=== PATIENT | female | born 1965 | race Two or more races ===

== ENCOUNTER → 2024-12-25 | Outpatient (CLI) | payer MEDICAID, SELFPAY ==
--- NOTE | 2024-12-25 12:00 | XR_ITS ---
MRI shoulder, right, without contrast. Date and time: December 25, 2024, 1442 hours INDICATIONS: Shoulder pain radiating to the neck 2 years numbness in the arm Technique: Multiple axial, sagittal and coronal sections of the shoulder have been obtained. Siemens high-resolution 1.5 Viri MRI scanner is utilized. Axial fat-suppressed sections, TR 2350, TE 18 T2-weighted coronal fat-saturated images, TR 3500, TE 7100 T1-weighted coronal images, TR 500, TE 15 T2-weighted sagittal fat-saturated images, TR 3500, TE 57 T1-weighted sagittal sections, TR 504, TE 13. Findings: Supraspinatus tendon insertion is abnormal, 4 mm rim rent articular surface partial thickness tear. Infraspinatus tendon insertion is intact. Subscapularis insertion is intact. Subscapularis bursa is not see. Long head of the biceps is in the bicipital groove. No definite tear of the biceps superior labral anchor is seen. Retraction of the musculotendinous junction of the rotator cuff is not seen . Tendinosis pattern is moderate. Distance between the acromium and humeral head is 5.6 mm Atrophy of the supraspinatus muscle is moderate. Atrophy of the infraspinatus muscle is mild. Sagittal sections demonstrate a horizontal acromion. Acromioclavicular joint demonstrates moderate osteoarthritis. Osacromiale is not identified. Labral margins intact. Bony glenoid fossa on the sagittal sections does not demonstrate osseous defect. Occult fracture or area of avascular necrosis is not seen. Acromioclavicular joint separation is not visible. Defect in the posterolateral margin of the humeral head is not seen Impression: 4 mm rim rent articular surface partial thickness tear supraspinatus
== END | disposition home or self-care (01) ==
PROVIDERS: Referring Provider Orthopaedic Surgery; Visit Provider Orthopaedic Surgery
DX: M75.101 Unspecified rotator cuff tear or rupture of right shoulder, not specified as traumatic (principal)
CPT/HCPCS: 73221

== ENCOUNTER 2025-01-24 08:50 | Day surgery (SDC) | payer MEDICAID, SELFPAY ==
[2025-01-23 11:41] VITALS: BMI 30.2
--- NOTE | 2025-01-23 11:51 | EKG_ITS ---
[facility] Test Date: 2025-01-23 Pat Name: LONA KHAN Department: Room: - Gender: Female Bass Fisher: TATI : 1965 Requested By: Sascha Nathan Order Number: [id number] Reading MD: Sascha Nathan Measurements Intervals [place] Rate: 54 P: 38 ND: 143 QRS: -2 QRSD: 97 T: 13 QT: 417 QTc: 396 Interpretive Statements SINUS BRADYCARDIA No previous ECG available for comparison /store/S0/[id number].pdf
[2025-01-23 12:20] LABS: Basophils # (Auto) 0.0 Thou/mm3 (0.0-0.2); Basophils % (Auto) 1 % (0-2.5); Eosinophils # (Auto) 0.2 Thou/mm3 (0.0-0.5); Eosinophils % (Auto) 5 % (0-10); Hematocrit 40.0 % (36.0-46.0); Hemoglobin 12.9 g/dL (12.0-16.0); Immature Granulocytes Auto 0.01 Thou/mm3 (0.00-0.00); Lymphocytes # (Auto) 1.8 Thou/mm3 (1.0-4.8); Lymphocytes % (Auto) 37 % (10-50); Mean Corpuscular HGB Conc 32.3 g/dl (31.0-37.0); Mean Corpuscular Hemoglobin 28.2 pg (25.0-35.0); Mean Corpuscular Volume 87 fL (80-100); Monocytes # (Auto) 0.3 Thou/mm3 (0.0-0.8); Monocytes % (Auto) 6 % (0-12); Neutrophils # (Auto) 2.5 Thou/mm3 (1.8-7.7); Neutrophils % (Auto) 51 % (37-80); Nucleated Red Blood Cell # 0.00 Thou/mm3 (0.00-0.00); Nucleated Red Blood Cell % 0 /100 WBC (0); Platelet Count 253 Thou/mm3 (140-440); RDW Standard Deviation 41.2 fL (36.4-46.3); Red Blood Count 4.58 Miln/mm3 (4.00-5.20); White Blood Count 4.8 Thou/mm3 (3.6-11.0)
[2025-01-23 12:38] LABS: INR 1.0 (0.9-1.3); Partial Thromboplastin Time 27.2 Seconds (22.0-36.0); Prothrombin Time 10.6 Seconds (9.0-12.2)
[2025-01-23 12:44] LABS: Anion Gap 7 (7-16); BUN/Creatinine Ratio 19 Ratio (12-20); Blood Urea Nitrogen 13 mg/dL (9-23); Calcium 9.2 mg/dL (8.3-10.6); Carbon Dioxide 30.5 mMol/L (20.0-31.0); Chloride 106 mMol/L (98-107); Creatinine (Component) 0.7 mg/dL (0.6-1.3); Estimated Creatinine Clearance 80.8 mL/min (>60); Glucose 91 mg/dL (74-106); Osmolality,Calculated 285 (275-295); Potassium 4.6 mMol/L (3.4-5.1); Sodium 143 mMol/L (136-145); eGFR > 60 See Note
[2025-01-24] VITALS (9 sets, daily range): BP systolic 101–128; BP diastolic 67–89; PULSE 53–71; RESP 12–18; TEMP 36.1–36.4; O2SAT 98–100; BMI 30.2
--- NOTE | 2025-01-24 10:39 | SUR.PHASEI ---
1039 patient arrived to recovery resting comfortably in [facility], on oxygen 8L via oxy mask with an oral airway in place, breathing unlabored, vital signs stable, dressing intact to right wrist; sutures, adaptic soaked in betadine, fluffs, bias roll, silk tape, no bleeding noted, patient has good circulation to right upper extremity; skin color normal for patient and warm to touch, report receive from Dr. Aviles and Meghan GÓMEZ
--- NOTE | 2025-01-24 10:46 | PD.SUROPNT ---
Date of Procedure 01/24/25 Pre Op Diagnosis 1. Right carpal tunnel compression 2. Cyst flexor aspect right wrist 3. Cyst dorsum aspect right wrist Post Op Diagnosis 1. Right carpal tunnel compression 2 lipoma flexor aspect right wrist 3. Lipoma dorsum suspect right wrist Procedure 1. Right carpal tunnel release 2 excision lipoma flexor aspect right wrist 3 excision lipoma dorsal aspect right wrist Findings Refer dictation Procedure Description The patient was given general endotracheal anesthesia. Once satisfactory anesthesia achieved a tourniquet was placed on right upper arm. Following that the part was thoroughly prepped and draped. After using Esmarch the tourniquet pressure was raised to 250 mm open 3 Intravenous antibiotics was given at the time of anesthesia 1. Release of right carpal tunnel compression A skin incision was made from the wrist crease extending distally for about 2 inches or so. Deeper dissection was carried out. The subcu tissue and fascia was incised. Following that palmar aponeurosis in the line of his skin incision was incised. Palmaris brevis muscle was encountered which was also incised in the line of his skin incision The deep carpal ligament was encountered. Taking care not to damage any deeper structure a gentle stab incision was made in deep carpal ligament. Following that Harrietta was introduced underneath it to protect the median nerve Following that the deep carpal ligament was incised all along its vertical length. The median nerve was thoroughly decompressed and blood vessels could be seen running over it. Wound was irrigated with antibiotic solution every 4 to 5 minutes. Closure was done with the help of 3-0 Prolene in an interrupted fashion. 2 excision lipoma flexor aspect right wrist Another skin incision was made over the ulnar side of the wrist. The length of the incision was about 1 inch long. Deeper dissection was carried out. The mass was exposed. It was lipoma. It was excised and sent for histopathological examination. The area was palpated and no other mass could be felt. Wound was irrigated with antibiotic solution. The subcu tissue was closed with 2-0 Vicryl and the skin was closed with 3-0 Prolene in interrupted fashion. 3 excision lipoma dorsal aspect of right wrist The mass was present over the center of the dorsum aspect of the right wrist. Skin incision made over the most prominent part. The length of the incision was about 2 inches to 2-1/2 inches. Deeper dissection was carried out. Subcu tissue and fascia was incised. The care was taken not to damage any extensor tendon. The mass which was consistent with lipoma was present which was excised. The wound was palpated. No other mass could be felt Wound was irrigated with antibiotic solution every 4 to 5 minutes There was then with the help of 3-0 Vicryl for subcu tissue. The skin was closed with 3-0 Prolene in an interrupted fashion A total of 15 to 16 mL of quarter percent Marcaine was injected altogether at the skin incision site To cleaning the wound with hydrogen peroxide solution sterile dressing was applied. Patient tolerated procedure well. Estimated blood loss 1 mL. Progress in this case is good Anesthesia GETA Pathology / specimen None Estimated Blood Loss 1 Surgeon Sascha Harrell MD Surgical Staff Operation Date: 01/24/25 12:00 Case Staff Anesthesiologist: Lj Melendez
--- NOTE | 2025-01-24 11:17 | ESHP_ITS ---
RE: LONA KHAN : 1965 DATE OF ADMISSION: 01/24/2025 Patient came to my office on 01/23/2025 for detail preop history and physical examination. HISTORY OF PRESENT COMPLAINT: Patient presents to me with history of numbness in the right hand. The numbness was quite bad. There is also burning and tingling sensation. Patient has to shake her hand to bring it back to life. Patient also has weak fist and soccer referee. Patient's nerve conduction studies and EMG confirmed carpal tunnel compression. Besides that patient had 2 mass present as well. One was on the ulnar side of the right wrist on the flexor side. It is painful and mobile. The another mass was over the dorsal aspect of the right wrist which is again painful and mobile. Clinically both appear to be cysts. PAST MEDICAL HISTORY: No history of diabetes mellitus, high blood pressure, asthma, seizure, chest pain, myocardial infarction, bleeding disorder. SURGICAL PROCEDURE: Nil known. DRUG HISTORY: Nil. ALLERGIES: NIL KNOWN. FAMILY HISTORY SOCIAL HISTORY: Patient denies smoking, drinking. PHYSICAL EXAMINATION: General: Normal-built lady. Vital Signs: Pulse 84 per minute. Blood pressure 130/76. Neck: Soft, supple, no mass felt. Trachea is centrally placed. Cardiovascular: First and second heart sound normal. No murmur heard. Respiratory: Bilateral vesicular breath sounds. Chest: Clear. Abdomen: Soft, no mass felt. Bowel sounds present. Extremities: Right hand examination revealed no wasting of the thenar and/or hypothenar eminence. There is decreased sensation in outer 4 digits. Tinel's sign and Phalen's signs are positive. Patient has weak fist and soccer referee. There is a mass over the ulnar aspect of the flexor side of the wrist. It is about 2-3 mm in size. It is tender and mobile. Clinically it is a cyst. There is another mass over the dorsal aspect of the right wrist. It is about 2- 3 mm in size. It is tender and mobile. Clinically it is a cyst. So patient has right carpal tunnel compression and 2 cysts, one on flexor side the other one is on dorsal side. Patient want it to be excised. Risk with anesthesia was explained and that includes but not limited to reaction to anesthetic agents, cardiac arrest or rarely it might be fatal. Risk for surgery for the carpal tunnel includes infection and if that happens, the patient may need further surgical procedure. The other risk include is possible damage or injury to nerve or tendons. No guarantee is given regarding outcome of the procedure and/or relief of symptoms. Sometimes patient feel weakness of the wrist soccer referee etc. However most of time they recover. Risk with surgery for the cysts includes possible damage to nerve and/or vessels. There is a risk of recurrence as well. No guarantee is given regarding outcome of the procedure and/or relief of symptoms or pain relief. No guarantee is also given regarding functional outcome. Accordingly surgery is booked for 01/24/2025. Appropriate lab work is done. DT: 10:57:51 TT: 11:16:00 Ref: [id number] - TID: [id number]
--- NOTE | 2025-01-24 11:49 | SUR.PHASEII ---
patient disconnected from vital signs monitor, vital signed discharge, denies pain, dressing intact; no bleeding noted, awaiting ride to arrive
--- NOTE | 2025-01-24 12:26 | SUR.PHASEII ---
1226 patient ride arrived, patient meets discharge criteria from recovery, awake and alert, breathing unlabored, vital signs stable, denies pain and nausea, discharge instructions given with the assistance of the hospital ring striker Ericka to patient and her , signed discharge instructions. Patient given all her belongings prior to discharge, transported via wheelchair and left in a private vechile.
== END 2025-01-24 12:26 | disposition home or self-care (01) ==
PROVIDERS: PCP Nurse Practitioner; Referring Provider Orthopaedic Surgery; Visit Provider Orthopaedic Surgery
PROC: (CPT 64721; principal; 2025-01-24 11:45)
PROC: (CPT 64721; 2025-01-24 11:45)
DX: G56.01 Carpal tunnel syndrome, right upper limb (principal); D17.21 Benign lipomatous neoplasm of skin and subcutaneous tissue of right arm; Z01.810 Encounter for preprocedural cardiovascular examination
CPT/HCPCS: 64721; 25075; 36415; 80048; 85025; 85610; 85730; 93005; A4649; J0131; J1580; J2250; J2704; J3010; J3490; J0665